=== PATIENT | female | born 1970 | race African-American/Black ===

== ENCOUNTER → 2023-07-11 | Outpatient (CLI) | payer MEDICAID ==
[2023-07-11 11:17] LABS: BASO # 0.1 10*3/uL (0.0-0.1); BASO % 1.5 % (0.0-1.0); EOS # 0.1 10*3/uL (0.0-0.4); EOS % 3.4 % (1.0-4.0); HEMATOCRIT 42.1 % (37.0-47.0); LYMPH # 1.3 10*3/uL (1.3-4.4); LYMPH % 31.2 % (27.0-41.0); MEAN CELL VOLUME 92.3 fl (81.0-99.0); MEAN CORPUSCULAR HGB 30.9 pg (27.0-31.0); MEAN CORPUSCULAR HGB CONC 33.5 g/dl (33.0-37.0); MEAN PLATELET VOLUME 10.3 fl (9.6-12.3); MONO # 0.5 10*3/uL (0.1-1.0); MONO % 12.3 % (3.0-9.0); NEUT # 2.1 10*3/uL (2.3-7.9); NEUT % 51.4 % (47.0-73.0); PLATELET COUNT AUTOMATED 219 10*3/uL (130-400); RED BLOOD COUNT 4.56 10*6/uL (4.10-5.10); RED CELL DISTRI WIDTH 15.9 % (0-14.5); WHITE BLOOD COUNT 4.1 10*3/uL (4.8-10.8)
[2023-07-11 11:53] LABS: ALKALINE PHOSPHATASE 105 U/L (46-116); BUN 13 mg/dl (9-23); CHLORIDE 109 mmol/L (98-107); CHOLESTEROL 232 mg/dL (<200); LDL CHOLESTEROL 123 mg/dL (9-159); POTASSIUM 4.6 mmol/L (3.4-5.1); SGPT/ALT 14 U/L (10-49); THYROXINE (T4) TOTAL 6.1 ug/dl (4.5-10.9); TOTAL PROTEIN 7.9 gm/dL (6.0-8.0); TRIGLYCERIDES 79 mg/dl (<150)
== END | disposition home or self-care (01) ==
LOC: LAB 10:54
PROVIDERS: ATTEND Nurse Practitioner
DX: Z51.81 Encounter for therapeutic drug level monitoring (principal); Z79.899 Other long term (current) drug therapy

== ENCOUNTER → 2023-09-12 | Outpatient (CLI) | payer MEDICAID ==
[2023-09-12 12:50] LABS: BASO # 0.1 10*3/uL (0.0-0.1); BASO % 1.6 % (0.0-1.0); EOS # 0.1 10*3/uL (0.0-0.4); EOS % 3.3 % (1.0-4.0); HEMATOCRIT 41.7 % (37.0-47.0); LYMPH % 28.2 % (27.0-41.0); MEAN CELL VOLUME 93.1 fl (81.0-99.0); MEAN CORPUSCULAR HGB CONC 33.3 g/dl (33.0-37.0); MEAN PLATELET VOLUME 10.5 fl (9.6-12.3); MONO # 0.4 10*3/uL (0.1-1.0); MONO % 10.8 % (3.0-9.0); NEUT # 2.1 10*3/uL (2.3-7.9); NEUT % 56.1 % (47.0-73.0); PLATELET COUNT AUTOMATED 235 10*3/uL (130-400); RED BLOOD COUNT 4.48 10*6/uL (4.10-5.10); RED CELL DISTRI WIDTH 15.1 % (0-14.5); WHITE BLOOD COUNT 3.7 10*3/uL (4.8-10.8)
[2023-09-12 13:00] LABS: BILIRUBIN Negative (Negative); BLOOD Negative (Negative); CLARITY Clear (Clear); COLOR Yellow (Yellow); GLUCOSE Negative (Negative); KETONE Negative (Negative); LEUKO ESTERASE Negative (Negative); NITRITE Negative (Negative); PH 5.5 (4.5-8.0); UROBILINOGEN 0.2 E.U./dl (0.0-1.0)
[2023-09-12 13:11] LABS: BACTERIA 3+
[2023-09-12 13:13] LABS: ALKALINE PHOSPHATASE 95 U/L (46-116); BUN 12 mg/dl (9-23); CHLORIDE 109 mmol/L (98-107); CHOLESTEROL 240 mg/dL (<200); LDL CHOLESTEROL 138 mg/dL (9-159); POTASSIUM 4.4 mmol/L (3.4-5.1); SGPT/ALT 10 U/L (5-49); TOTAL PROTEIN 7.7 gm/dL (6.0-8.0); TRIGLYCERIDES 104 mg/dl (<150)
== END | disposition home or self-care (01) ==
LOC: LAB 12:06
PROVIDERS: ATTEND Nurse Practitioner Family
DX: F32.A Depression, unspecified (principal); F17.210 Nicotine dependence, cigarettes, uncomplicated; Z95.1 Presence of aortocoronary bypass graft; Z85.43 Personal history of malignant neoplasm of ovary

== ENCOUNTER → 2023-10-31 | Outpatient (CLI) | payer MEDICAID ==
[2023-10-31 12:28] LABS: BASO # 0.1 10*3/uL (0.0-0.1); BASO % 1.4 % (0.0-1.0); EOS # 0.1 10*3/uL (0.0-0.4); EOS % 2.3 % (1.0-4.0); HEMATOCRIT 40.1 % (37.0-47.0); LYMPH # 1.5 10*3/uL (1.3-4.4); LYMPH % 43.2 % (27.0-41.0); MEAN CELL VOLUME 93.3 fl (81.0-99.0); MEAN CORPUSCULAR HGB 30.7 pg (27.0-31.0); MEAN CORPUSCULAR HGB CONC 32.9 g/dl (33.0-37.0); MONO # 0.4 10*3/uL (0.1-1.0); MONO % 11.3 % (3.0-9.0); NEUT # 1.4 10*3/uL (2.3-7.9); NEUT % 41.5 % (47.0-73.0); PLATELET COUNT AUTOMATED 224 10*3/uL (130-400); RED CELL DISTRI WIDTH 14.3 % (0-14.5); WHITE BLOOD COUNT 3.5 10*3/uL (4.8-10.8)
== END | disposition home or self-care (01) ==
LOC: LAB 11:50
PROVIDERS: ATTEND Nurse Practitioner Family
DX: R10.84 Generalized abdominal pain (principal); D72.829 Elevated white blood cell count, unspecified; K43.9 Ventral hernia without obstruction or gangrene

== ENCOUNTER → 2023-11-08 | Outpatient (CLI) | payer MEDICAID | END | disposition home or self-care (01) | LOC: CT 10-19 09:00 | PROVIDERS: ATTEND Nurse Practitioner Family | DX: S32.501A Unspecified fracture of right pubis, initial encounter for closed fracture (principal); K43.9 Ventral hernia without obstruction or gangrene; N13.30 Unspecified hydronephrosis; N13.4 Hydroureter; N28.1 Cyst of kidney, acquired; Z90.710 Acquired absence of both cervix and uterus; X58.XXXA Exposure to other specified factors, initial encounter; Y93.89 Activity, other specified; Y92.89 Other specified places as the place of occurrence of the external cause; Y99.8 Other external cause status ==

== ENCOUNTER → 2024-01-25 | Outpatient (CLI) | payer MEDICAID ==
[2024-01-25 17:32] LABS: BUN 18 mg/dl (9-23)
== END | disposition home or self-care (01) ==
LOC: LAB 17:06
PROVIDERS: ATTEND Urology
DX: R31.29 Other microscopic hematuria (principal)

== ENCOUNTER → 2024-02-02 | Outpatient (CLI) | payer MEDICAID ==
[~2024-02-02] MED LIST: IOHEXOL 300 MG/ML 100 ML VIAL IV ONE
== END | disposition home or self-care (01) ==
LOC: CT 01-26 01:00
PROVIDERS: ATTEND Urology
DX: J98.4 Other disorders of lung (principal); N28.1 Cyst of kidney, acquired; M43.8X4 Other specified deforming dorsopathies, thoracic region; Z90.710 Acquired absence of both cervix and uterus

== ENCOUNTER → 2024-02-08 | Outpatient (CLI) | payer MEDICAID | END | disposition home or self-care (01) | LOC: MAMMO 00:30 | PROVIDERS: ATTEND Nurse Practitioner Women's Health | DX: Z12.31 Encounter for screening mammogram for malignant neoplasm of breast (principal); R92.30 Dense breasts, unspecified ==

== ENCOUNTER → 2024-04-03 | Outpatient (CLI) | payer MEDICAID ==
[~2024-04-03] MED LIST changes: +ARIPIPRAZOLE10 MG PO; +GEMTESA75 MG PO; -IOHEXOL 300 MG/ML 100 ML VIAL IV ONE; +METOPROLOL TART50 M1 PO; +Regadenoson 0.4 MG/5 ML SYR IV ONE
== END | disposition home or self-care (01) ==
LOC: CARD 00:50
PROVIDERS: ATTEND Internal Medicine Cardiovascular Disease
DX: I35.1 Nonrheumatic aortic (valve) insufficiency (principal); R94.31 Abnormal electrocardiogram [ECG] [EKG]

== ENCOUNTER → 2024-07-05 | Outpatient (CLI) | payer MEDICAID ==
[~2024-07-05] MED LIST changes: -Regadenoson 0.4 MG/5 ML SYR IV ONE
[2024-07-05 11:49] LABS: BASO # 0.1 10*3/uL (0.0-0.1); BASO % 1.9 % (0.0-1.0); EOS # 0.1 10*3/uL (0.0-0.4); EOS % 2.7 % (1.0-4.0); HEMATOCRIT 38.2 % (37.0-47.0); LYMPH # 1.5 10*3/uL (1.3-4.4); LYMPH % 41.2 % (27.0-41.0); MEAN CORPUSCULAR HGB 30.2 pg (27.0-31.0); MEAN CORPUSCULAR HGB CONC 33.2 g/dl (33.0-37.0); MEAN PLATELET VOLUME 10.1 fl (9.6-12.3); MONO # 0.4 10*3/uL (0.1-1.0); MONO % 11.7 % (3.0-9.0); NEUT # 1.6 10*3/uL (2.3-7.9); NEUT % 42.5 % (47.0-73.0); PLATELET COUNT AUTOMATED 189 10*3/uL (130-400); RED CELL DISTRI WIDTH 15.1 % (0-14.5); WHITE BLOOD COUNT 3.7 10*3/uL (4.8-10.8)
[2024-07-05 12:11] LABS: ALKALINE PHOSPHATASE 91 U/L (46-116); BUN 14 mg/dl (9-23); CHLORIDE 107 mmol/L (98-107); CHOLESTEROL 232 mg/dL (<200); LDL CHOLESTEROL 138 mg/dL (9-159); SGPT/ALT 21 U/L (5-49); TOTAL PROTEIN 7.3 gm/dL (6.0-8.0); TRIGLYCERIDES 90 mg/dl (<150)
== END | disposition home or self-care (01) ==
LOC: LAB 11:29
PROVIDERS: ATTEND Nurse Practitioner Family
DX: D72.829 Elevated white blood cell count, unspecified (principal); R10.84 Generalized abdominal pain; Z85.43 Personal history of malignant neoplasm of ovary

== ENCOUNTER → 2025-05-21 | Outpatient (CLI) | payer OTHER ==
[2025-05-21 16:49] LABS: BUN 12 mg/dl (9-23); LDL CHOLESTEROL 158 mg/dL (9-159); SGPT/ALT 14 U/L (5-49)
== END | disposition home or self-care (01) ==
LOC: LAB 12:57
PROVIDERS: ATTEND Nurse Practitioner Family
DX: I10 Essential (primary) hypertension (principal); E78.00 Pure hypercholesterolemia, unspecified; F41.8 Other specified anxiety disorders; F17.210 Nicotine dependence, cigarettes, uncomplicated; Z71.6 Tobacco abuse counseling; F10.10 Alcohol abuse, uncomplicated; Z13.29 Encounter for screening for other suspected endocrine disorder